=== PATIENT | male | born 1980 | race African-American/Black ===

== ENCOUNTER 2022-03-19 20:45 | Emergency (ER) | payer MEDICAID ==
[~2022-03-19] VITALS: Ht 180.3 cm; Wt 91.0 kg
[2022-03-19 20:50] VITALS: BP 149/81
== END 2022-03-19 21:16 | disposition left against medical advice (07) ==
LOC: ER 20:45
DX: Z53.21 Procedure and treatment not carried out due to patient leaving prior to being seen by health care provider (principal)